=== PATIENT | female | born 1980 | race American Indian/Alaskan Native ===

== ENCOUNTER 2019-04-21 09:24 | Emergency (ER) | payer SELFPAY ==
[2019-04-21] MEDS ORDERED: ATROVENT IH ONE (10:07)
[2019-04-21] MEDS ORDERED: PROVENTIL IH ONE (10:07)
[2019-04-21] MEDS ORDERED: DELTASONE PO ONE (10:08)
--- NOTE | 2019-04-21 10:11 | Emergency Department Report ---
ED Chest Pain HPI - General Chief Complaint: Chest Pain Stated Complaint: CHEST PAIN/ASTHMA Time Seen by Provider: 04/21/19 09:59 Source: patient Mode of arrival: Ambulatory Limitations: No Limitations - History of Present Illness Initial Comments: 38-year-old -[place] female presents to the emergency department with complaint of a 2 week history of some intermittent wheezing, coughing, shortness of breath and chest pains. She has history of asthma and thinks it could be related to that. She also says that she is currently staying in an apartment that appears to have some black mold. She is currently on parole/probation after getting out of senior care and therefore is unable to move from this current living situation. She is a tobacco smoker. She does not have any inhaler or nebulizer treatments to try. No primary care physician. No recent travel. She denies any fever, lower extremity swelling. - Related Data Previous Rx's Medication Instructions Recorded Last Taken Type ALBUTEROL Inhaler (OR & NICU) 2 puff IH QID PRN #1 inhalation 04/21/19 Unknown Rx [ProAir HFA Inhaler] predniSONE [Deltasone] 20 mg PO BID #8 tab 04/21/19 Unknown Rx Allergies Allergy/AdvReac Type Severity Reaction Status Date / Time Penicillins Allergy Unknown Verified 04/21/19 09:29 Heart Score - HEART Score History: Slightly suspicious EKG: Normal Age: < 45 Risk factors: 1-2 risk factors Troponin: < normal limit HEART Score: 1 - Critical Actions Critical Actions: 0-3 pts:0.9-1.7%risk of adverse cardiac event.Candidate for discharge ED Review of Systems ROS: Stated complaint: CHEST PAIN/ASTHMA Other details as noted in HPI Comment: All other systems reviewed and negative Constitutional: denies: chills, fever Eyes: denies: eye pain, vision change ENT: denies: ear pain, throat pain Respiratory: cough, shortness of breath, wheezing Cardiovascular: chest pain. denies: edema Gastrointestinal: denies: abdominal pain, vomiting Genitourinary: denies: dysuria, discharge Musculoskeletal: denies: back pain, arthralgia Skin: denies: rash, lesions Neurological: denies: headache, weakness ED Past Medical Hx - Past Medical History Previous Medical History?: Yes Hx Asthma: Yes - Surgical History Past Surgical History?: No - Social History Smoking Status: Current Every Day Smoker Substance Use Type: None - Medications Home Medications: Home Medications Medication Instructions Recorded Confirmed Last Taken Type ALBUTEROL Inhaler (OR & NICU) 2 puff IH QID PRN #1 inhalation 04/21/19 Unknown Rx [ProAir HFA Inhaler] predniSONE [Deltasone] 20 mg PO BID #8 tab 04/21/19 Unknown Rx ED Physical Exam - General Limitations: No Limitations - Other Other exam information: GENERAL: The patient is well-developed well-nourished. HENT: Normocephalic. Atraumatic. Patient has moist mucous membranes. EYES: Extraocular motions are intact. NECK: Supple. Trachea is midline. CHEST/LUNGS: Mild expiratory wheezing. No tachypnea but no excessive muscle use. No cough heard during examination. There is no respiratory distress noted. HEART/CARDIOVASCULAR: Regular. There is no tachycardia. There is no murmur. ABDOMEN: Abdomen is soft, nontender. Patient has normal bowel sounds. There is no abdominal distention. SKIN: Skin is warm and dry. NEURO: The patient is awake, alert, and oriented. The patient is cooperative. The patient has no focal neurologic deficits. Normal speech. MUSCULOSKELETAL: There is no tenderness or deformity. There is no evidence of acute injury. ED Course Vital Signs 04/21/19 04/21/19 09:43 12:10 Temperature 98.1 F Pulse Rate 62 70 Respiratory 16 18 Rate Blood Pressure 131/66 Blood Pressure 164/64 [Left] O2 Sat by Pulse 99 99 Oximetry LEONOR score - Leonor Score Age > 65: (0) No Aspirin use within the Past 7 Days: (0) No 3 or more CAD Risk Factors: (0) No 2 or more Angina events in past 24 hrs: (1) Yes Known CAD with more than 50% Stenosis: (0) No Elevated Cardiac Markers: (0) No ST Deviation Greater than 0.5mm: (0) No LEONOR Score: 1 ED Medical Decision Making - Lab Data Result diagrams: 04/21/19 10:12 04/21/19 10:12 - EKG Data -: EKG Interpreted by Nd EKG shows normal: sinus rhythm, axis, intervals, QRS complexes, ST-T waves Rate: normal - EKG Data When compared to previous EKG there are: previous EKG unavailable Interpretation: normal EKG - Radiology Data Radiology results: image reviewed interpreted by me: Chest x-ray does not show any acute process. There are no pleural effusions, obvious pneumonia and there is no pneumothorax. - Medical Decision Making Patient presents to the emergency department with a few weeks of some wheezing, coughing, shortness of breath and occasional chest tightness. EKG did not show any signs of ST elevation TX, ischemia or dysrhythmia. Chest x-ray did not show any pleural effusions, pneumonia, pneumothorax, focal consolidation, or any other acute process. Labs have been unremarkable including a negative d-dimer. She was given a dose of steroids and a breathing treatment and upon reevaluation she is feeling greatly improved. She is low on the heart score criteria and LEONOR score. She is low on the Wells score criteria negative for the pulmonary embolism rule out criteria. It is possible that she has some black mold exposure per her history. She is instructed to have her living quarters tested and if positive she will need to find other living arrangements. She has been given referrals for primary care. She has been given a prescription for an albuterol inhaler and steroids. She will return to the ER with any worsening of her symptoms or any acute distress. - Differential Diagnosis asthma, pneumonia, TX, bronchitis Critical Care Time: No Critical care attestation.: If time is entered above; I have spent that time in minutes in the direct care of this critically ill patient, excluding procedure time. ED Disposition Clinical Impression: Bronchospasm, Tobacco use Asthma exacerbation Qualifiers: Asthma severity: unspecified severity Asthma persistence: unspecified Qualified Code(s): J45.901 - Unspecified asthma with (acute) exacerbation Disposition: DC-01 TO HOME OR SELFCARE Is pt being admited?: No Condition: Stable Instructions: Asthma (ED), How to Stop Smoking (ED) Additional Instructions: Please follow-up with a primary care physician in the next few days and I am giving you some referrals for local primary care physicians and clinics. Please make sure you contact the appropriate people regarding having your residence tested for the mold exposure. If positive for mold, please try and find another living situation to avoid any further exposure. Return to the emergency Department with any worsening of your symptoms or any acute distress. Prescriptions: predniSONE [Deltasone] 20 mg PO BID #8 tab ALBUTEROL Inhaler (OR & NICU) [ProAir HFA Inhaler] 2 puff IH QID PRN #1 inhalation PRN Reason: Shortness Of Breath Referrals: [facility] [Outside] - 3-5 Days [facility] [Outside] - 3-5 Days [facility] [Outside] - 3-5 Days Time of Disposition: 12:03
[2019-04-21 10:33] LABS: Basophils # (Auto) 0.1 K/mm3 (0.0-0.1); Basophils % (Auto) 1.2 % (0.0-1.8); Eosinophils # (Auto) 0.4 K/mm3 (0.0-0.4); Eosinophils % (Auto) 3.5 % (0.0-4.3); Hematocrit 40.6 % (30.3-42.9); Hemoglobin 14.3 gm/dl (10.1-14.3); Lymphocytes # (Auto) 4.4 K/mm3 (1.2-5.4); Lymphocytes % (Auto) 37.9 % (13.4-35.0); Mean Corpuscular HGB Conc 35 % (30-34); Mean Corpuscular Volume 80 fl (79-97); Monocytes # (Auto) 0.4 K/mm3 (0.0-0.8); Monocytes % (Auto) 3.7 % (0.0-7.3); Platelet Count 323 K/mm3 (140-440); Red Blood Count 5.06 M/mm3 (3.65-5.03)
--- NOTE | 2019-04-21 10:45 | XRay Report ---
CHEST 2 VIEWS INDICATION / CLINICAL INFORMATION: SOB. Chest pain. COMPARISON: None available. FINDINGS: SUPPORT DEVICES: None. HEART / MEDIASTINUM: No significant abnormality. LUNGS / PLEURA: No significant pulmonary or pleural abnormality. No pneumothorax. ADDITIONAL FINDINGS: No significant additional findings. IMPRESSION: 1. No acute findings. Signer Name: Stephany Martin MD Signed: 04/21/2019 10:40 AM Workstation Name: [id number]
[2019-04-21 10:46] LABS: BUN/Creatinine Ratio 11; Blood Urea Nitrogen 8 mg/dL (7-17); Calcium 9.7 mg/dL (8.4-10.2); Hemolysis Index 4
[2019-04-21 12:11] VITALS: BP 164/64
== END 2019-04-21 12:10 | disposition home or self-care (01) ==
LOC: ED 09:24
DX: J45.901 Unspecified asthma with (acute) exacerbation (principal); F17.200 Nicotine dependence, unspecified, uncomplicated; Z79.899 Other long term (current) drug therapy; Z88.0 Allergy status to penicillin
CPT/HCPCS: 36415; 71046; 80048; 84484; 85025; 93005; 93010; 94640; 99284; J7512

== ENCOUNTER 2020-06-29 14:16 | Outpatient (CLI) | payer MEDICAID ==
[2020-06-29 15:49] LABS: Hematocrit 30.3 % (30.3-42.9); Hemoglobin 10.7 gm/dl (10.1-14.3); Mean Corpuscular HGB Conc 35 % (30-34); Mean Corpuscular Volume 73 fl (79-97); Platelet Count 417 K/mm3 (140-440); Red Blood Count 4.17 M/mm3 (3.65-5.03); Red Cell Distribution Width 18.5 % (13.2-15.2)
[2020-06-29 15:55] LABS: Bacteria,Urine 2+ /HPF (Negative); Bilirubin,Urine NEG (Negative); Blood,Urine NEG (Negative); Color,Urine Yellow (Yellow); Mucus,Urine 2+ /HPF; Urobilinogen,Urine < 2.0 mg/dL (<2.0)
[2020-06-29 16:05] LABS: Alanine Aminotransferase 6 units/L (7-56); Uric Acid 5.2 mg/dL (3.5-7.6)
[2020-06-29 16:28] VITALS: BP 113/63
--- NOTE | 2020-06-29 18:22 | Ultrasound Report ---
ULTRASOUND OBSTETRIC LIMITED ULTRASOUND BIOPHYSICAL PROFILE INDICATION / CLINICAL INFORMATION: PIH. COMPARISON: None available. FINDINGS: BREATHING MOVEMENT = 2 GROSS BODY MOVEMENT = 2 TONE = 2 QUALITATIVE AMNIOTIC FLUID VOLUME = 2 TOTAL BIOPHYSICAL SCORE = 8/8 HEART RATE (beats per minute): 151 AMNIOTIC FLUID INDEX (cm) = 9.2 (normal = 7-24 cm) PRESENTATION: Cephalic. ADDITIONAL FINDINGS: None. IMPRESSION: 1. Biophysical Score = 8/8 Signer Name: Mike Olson MD Signed: 06/29/2020 6:18 PM Workstation Name: [email or web address]
== END 2020-06-29 18:02 | disposition home or self-care (01) ==
LOC: TRG 14:16 → APU 14:17 → TRG 18:02
PROVIDERS: ATTEND Obstetrics & Gynecology
DX: O47.1 False labor at or after 37 completed weeks of gestation (principal); Z3A.38 38 weeks gestation of pregnancy
CPT/HCPCS: 36415; 59025; 76815; 76819; 81001; 82565; 83615; 84450; 84460; 84550; 85027

== ENCOUNTER 2020-07-03 20:24 | Inpatient (IN) | payer MEDICAID ==
[2020-07-03] MEDS ORDERED: LIDOCAINE (2%) 20 MG/1 ML VIAL 20 ML MDV INFILTRATI ONE (23:33)
[2020-07-03] MEDS ORDERED: TERBUTALINE 1 MG/1 ML INJ SUB-Q PRN (23:33)
[2020-07-03] MEDS ORDERED: MINERAL OIL 30 ML ORAL LIQD PO PRN (23:33)
[2020-07-03] MEDS ORDERED: ePHEDrine SULFATE 50 MG/1 ML INJ IV PRN (23:33)
[2020-07-03] MEDS ORDERED: OXYTOCIN DRIP 30 UNITS/500 ML BAG IV SCH (23:45)
--- NOTE | 2020-07-03 23:55 | History and Physical Report ---
History of Present Illness Date of examination: 07/03/20 Date of admission: 07/03/20 20:24 Chief complaint: Here for scheduled IOL. History of present illness: 39 year old female presents to L&D for scheduled IOL due to obesity (recommended by [facility]). Patient received care at [facility] OB-CERTIFIED RECREATIONAL THERAPIST and records are available. Patient also saw [facility] during the . LMP 10/04/2019. EDC 07/10/2020. EDC confirmed by 7.6 week US. significant for the following: asthma, enlarged thyroid, genital herpes (on Valtrex suppression and denies lesions or prodromal symptoms), marijuana and tobacco use, obesity. labs are as follows: A+, antibody screen negative, rubella immune, hepatitis B surface antigen negative, HIV negative, RPR nonreactive, varicella immune, gonorrhea negative, chlamydia negative, trichomonas negative, GBS ne gative, 1 hour sugar test 76, repeat 1 hour sugar test 110, hemoglobin electrophoresis AC. Past History Past Medical History: other (obesity) Past Surgical History: other (EAB times 3) CERTIFIED RECREATIONAL THERAPIST History: herpes (denies lesions or prodromal symptoms) Family/Genetic History: diabetes, hypertension, cancer Social history: smoking, full code. denies: alcohol abuse, prescription drug abuse, IV drug use - Obstetrical History Expected Date of Delivery: 07/10/20 Actual Gestation: 39 Week(s) 1 Day(s) : 4 Para: 0 Hx # Term Pregnancies: 0 Number of Pregnancies: 0 Spontaneous Abortions: 0 Induced : 3 Number of Living Children: 0 Medications and Allergies Allergies Allergy/AdvReac Type Severity Reaction Status Date / Time Penicillins Allergy Severe Anaphylaxis Verified 06/29/20 14:28 Home Medications Medication Instructions Recorded Confirmed Last Taken Type Albuterol Mdi (or & Nicu Only) 2 puff IH QID PRN #1 inhalation 04/21/19 Unknown Rx [ProAir HFA Inhaler] predniSONE [Deltasone] 20 mg PO BID #8 tab 04/21/19 Unknown Rx Active Meds: Active Medications Ephedrine Sulfate (Ephedrine Sulfate) 10 mg IV Q2M PRN PRN Reason: Hypotension Fentanyl (Sublimaze) 100 mcg IV Q2H PRN PRN Reason: Pain,Severe (7-10) LABOR PAIN Oxytocin/Sodium Chloride (Pitocin/Ns 30 Unit/500ml) 30 units in 500 mls @ 2 mls/hr IV TITR MARIOLA; Protocol Lactated Ringer's (Lactated Ringers) 1,000 mls @ 125 mls/hr IV DIRECT MARIOLA Oxytocin/Sodium Chloride (Pitocin/Ns 30 Unit/500ml) 30 units in 500 mls @ 40 mls/hr IV TITR MARIOLA; Protocol Lidocaine (Xylocaine 2%) 20 ml INFILTRATI ONCE ONE Stop: 07/03/20 23:34 Mineral Oil (Mineral Oil) 30 ml PO QHS PRN PRN Reason: Constipation Terbutaline Sulfate (Brethine) 0.25 mg SUB-Q ONCE PRN PRN Reason: Hyperstimulation/Hypertonicity Valacyclovir HCl (Valtrex) 500 mg PO BID MARIOLA Review of Systems All systems: negative (occasional contraction) - Vital Signs Vital signs: Vital Signs Temp Pulse Resp BP 98.2 F 82 16 124/62 07/03/20 21:45 07/03/20 21:45 07/03/20 21:45 07/03/20 21:45 Temp Pulse Resp BP Pulse Ox 98.2 F 90 16 142/68 07/03/20 21:45 07/03/20 23:32 07/03/20 21:45 07/03/20 23:32 - Physical Exam Abdomen: Positive: normal appearance, soft. Negative: distention, tenderness, guarding, rigidity Genitourinary (Female): Positive: normal external genitalia, normal perenium. Negative: perineal/vulvar lesions Vagina: Positive: normal moisture Uterus: Positive: enlarged. Negative: tender Anus/Rectum: Positive: normal perianal skin Extremities: Positive: normal. Negative: tenderness, edema - Obstetrical FHR: category 1 Uterine Contraction Monitor Mode: External Cervical Dilatation: 0 Cervical Effacement Percentage: 20 station: -2 Uterine Contraction Pattern: Irregular Uterine Contraction Intensity: Mild Results All other labs normal. Assessment and Plan A: at 39 weeks gestation. Obesity. GBS negative. Herpes positive on Valtrex suppression. P: Admit. Pitocin cervical ripening and IOL. Continuous EFM. Discussed with patient risks and benefits of Pitocin cervical ripening and IOL. Patient consented to cervical ripening and IOL. Continue Valtrex suppression of HSV.
--- NOTE | 2020-07-04 00:49 | Ultrasound Report ---
US OB limited INDICATION: presentation. TECHNIQUE: Limited OB ultrasound COMPARISON: None available. FINDINGS: presentation is cephalic. heart rate measures 140 bpm. Signer Name: Mike Olson MD Signed: 07/04/2020 12:44 AM Workstation Name: [id number]
[2020-07-04 00:53] LABS: Hematocrit 31.8 % (30.3-42.9); Hemoglobin 10.9 gm/dl (10.1-14.3); Mean Corpuscular HGB Conc 34 % (30-34); Mean Corpuscular Volume 73 fl (79-97); Platelet Count 454 K/mm3 (140-440); Red Blood Count 4.37 M/mm3 (3.65-5.03); Red Cell Distribution Width 18.8 % (13.2-15.2)
[2020-07-04] MEDS: OXYTOCIN DRIP 30 UNITS/500 ML BAG IV SCH (06:20)
[2020-07-04] MEDS: LACTATED RINGERS 1,000 ML IV SCH ×3 (06:21→21:40)
[2020-07-04] MEDS: valACYclovir 500 MG TAB PO SCH ×3 (10:46→22:03)
--- NOTE | 2020-07-04 10:49 | Progress Note ---
Assessment and Plan A: IUP @ 39 2/7 Weeks Category I Tracing Maternal Obesity GBS Negative P: D/C Pitocin Cytotec 25mcg per vagina Subjective - Subjective Date of service: 07/04/20 Objective - Vital Signs Vital Signs: Vital Signs - 12hr 07/03/20 07/04/20 07/04/20 23:32 07:11 08:09 Temperature 98.4 F Pulse Rate 90 73 Respiratory 19 Rate Blood Pressure 142/68 103/51 07/04/20 10:14 Temperature Pulse Rate 76 Respiratory Rate Blood Pressure 114/59 - Exam Breasts: normal Cardiovascular: Regular rate Lungs: Clear to auscultation, Normal air movement Abdomen: Present: normal appearance, normal bowel sounds Uterus: Present: normal, firm, fundal height above umbilicus FHR: category 1 Uterine Contraction Monitor Mode: External Cervical Dilatation: 0 Cervical Effacement Percentage: 0 station: -3 Uterine Contraction Pattern: Absent Uterine Tone Measurement Phase: Resting - Labs Labs: Abnormal Labs 07/03/20 23:57 WBC 16.9 H MCV 73 L MCH 25 L RDW 18.8 H Plt Count 454 H Laboratory Results - last 24 hr 07/03/20 07/03/20 23:57 23:57 WBC 16.9 H RBC 4.37 Hgb 10.9 Hct 31.8 MCV 73 L MCH 25 L MCHC 34 RDW 18.8 H Plt Count 454 H Blood Type A POSITIVE Antibody Screen Negative
[2020-07-04] MEDS ORDERED: miSOPROStol 25 MCG TAB VG PRN (11:00)
[2020-07-04] MEDS ORDERED: DINOPROSTONE 10 MG VAG SUPP VG ONE (16:00)
--- NOTE | 2020-07-04 17:43 | Progress Note ---
Assessment and Plan A: IUP @ 39 2/7 Weeks Category I Tracing Maternal Obesity GBS Negative P: Cervidil Induction Subjective - Subjective Date of service: 07/04/20 Objective - Vital Signs Vital Signs: Vital Signs - 12hr 07/04/20 07/04/20 07/04/20 07:11 08:09 10:14 Temperature 98.4 F Pulse Rate 73 76 Respiratory 19 Rate Blood Pressure 103/51 114/59 07/04/20 07/04/20 07/04/20 11:50 15:24 15:25 Temperature 98.5 F 98.7 F Pulse Rate 86 Respiratory 20 20 Rate Blood Pressure 108/55 - Exam Breasts: normal Cardiovascular: Regular rate Lungs: Clear to auscultation, Normal air movement Abdomen: Present: normal appearance, soft Uterus: Present: normal, firm, fundal height above umbilicus FHR: category 1 Uterine Contraction Monitor Mode: External Cervical Dilatation: 0.5 Cervical Effacement Percentage: 20 station: -4 Uterine Contraction Pattern: Irregular Uterine Tone Measurement Phase: Resting Uterine Contraction Intensity: Mild Extremities: normal - Labs Labs: Abnormal Labs 07/03/20 23:57 WBC 16.9 H MCV 73 L MCH 25 L RDW 18.8 H Plt Count 454 H Laboratory Results - last 24 hr 07/03/20 07/03/20 23:57 23:57 WBC 16.9 H RBC 4.37 Hgb 10.9 Hct 31.8 MCV 73 L MCH 25 L MCHC 34 RDW 18.8 H Plt Count 454 H Blood Type A POSITIVE Antibody Screen Negative
[2020-07-04] MEDS: fentaNYL 100 MCG/2 ML INJ IV PRN (23:19)
[2020-07-05] MEDS: LACTATED RINGERS 1,000 ML IV SCH ×3 (06:35→19:55)
[2020-07-05 09:20] LABS: Amphetamine Screen,Urine Negative; Benzodiazepines Screen,Urine Negative; Cocaine Screen,Urine Negative; Methadone Screen,Urine Negative; Opiate Screen,Urine Negative
[2020-07-05 09:29] LABS: Bacteria,Urine 4+ /HPF (Negative); Bilirubin,Urine NEG (Negative); Blood,Urine NEG (Negative); Color,Urine Yellow (Yellow); Hyaline Casts,Urine 1 /LPF; Mucus,Urine FEW /HPF; Protein,Urine <15 mg/dL mg/dL (Negative); Urobilinogen,Urine < 2.0 mg/dL (<2.0)
[2020-07-05 10:48] LABS: Cannabinoid Screen,Urine PRESUMPTIVE POSITIVE
--- NOTE | 2020-07-05 10:51 | Progress Note ---
Assessment and Plan - Patient Problems (1) Encounter for induction of labor Current Visit: Yes Status: Acute Plan to address problem: Cytotec 50mcg po q 4 hrs as tolerated Pain meds as desired per orders Anticipate (2) Morbid obesity with BMI of 45.0-49.9, adult Current Visit: Yes Status: Acute (3) Anemia Current Visit: Yes Status: Acute Qualifiers: Anemia type: iron deficiency Plan to address problem: Asymptomatic Subjective - Subjective Date of service: 07/05/20 Principal diagnosis: IOL Interval history: See admission H & P and OB progress notes Patient reports: movement normal, contractions ("sometimes"), no new complaints, no loss of fluid, no vaginal bleeding Objective - Vital Signs Vital Signs: Vital Signs - 12hr 07/05/20 07/05/20 07/05/20 07:44 07:45 08:54 Temperature 98.0 F Pulse Rate 75 74 Respiratory 18 Rate Blood Pressure 104/58 100/46 O2 Sat by Pulse Oximetry 07/05/20 07/05/20 07/05/20 09:13 09:32 09:37 Temperature Pulse Rate 82 75 79 Respiratory Rate Blood Pressure O2 Sat by Pulse 100 98 100 Oximetry 07/05/20 07/05/20 07/05/20 09:42 09:47 09:52 Temperature Pulse Rate 73 73 86 Respiratory Rate Blood Pressure O2 Sat by Pulse 100 100 100 Oximetry 07/05/20 07/05/20 07/05/20 09:57 10:02 10:07 Temperature Pulse Rate 84 88 72 Respiratory Rate Blood Pressure O2 Sat by Pulse 100 100 100 Oximetry 07/05/20 07/05/20 07/05/20 10:12 10:17 10:22 Temperature Pulse Rate 70 74 71 Respiratory Rate Blood Pressure O2 Sat by Pulse 100 100 100 Oximetry 07/05/20 07/05/20 07/05/20 10:27 10:37 10:42 Temperature Pulse Rate 95 H 69 76 Respiratory Rate Blood Pressure O2 Sat by Pulse 99 100 99 Oximetry - Exam Breasts: deferred Cardiovascular: Regular rate Lungs: Normal air movement Abdomen: Present: other (gravid) Uterus: Present: other (enlarged) FHR: category 1 Uterine Contraction Monitor Mode: External Cervical Dilatation: 0.5 (vertex) Cervical Effacement Percentage: 50 (soft) station: -2 Uterine Contraction Pattern: Irregular Uterine Tone Measurement Phase: Resting Uterine Contraction Intensity: Mild Extremities: normal - Labs Labs: Abnormal Labs 07/03/20 07/05/20 23:57 Unknown WBC 16.9 H MCV 73 L MCH 25 L RDW 18.8 H Plt Count 454 H Urine pH 8.0 H Laboratory Results - last 24 hr 07/05/20 07/05/20 Unknown Unknown Urine Color Yellow Urine Turbidity Clear Urine pH 8.0 H Ur Specific [place] 1.008 Urine Protein <15 mg/dl Urine Glucose (UA) Neg Urine Ketones Neg Urine Blood Neg Urine Nitrite Pos Urine Bilirubin Neg Urine Urobilinogen < 2.0 Ur Leukocyte Esterase Neg Urine WBC (Auto) 1.0 Urine RBC (Auto) 1.0 U Epithel Cells (Auto) 1.0 Urine Bacteria (Auto) 4+ Hyaline Casts 1 Urine Mucus Few Urine Opiates Screen Negative Urine Methadone Screen Negative Ur Barbiturates Screen Negative Ur Phencyclidine Scrn Negative Ur Amphetamines Screen Negative U Benzodiazepines Scrn Negative Urine Cocaine Screen Negative
[2020-07-05] MEDS: valACYclovir 500 MG TAB PO SCH ×2 (11:10→22:45)
[2020-07-05] MEDS: miSOPROStol 25 MCG TAB PO PRN ×3 (11:13→19:25)
[2020-07-06] MEDS ORDERED: PROMETHAZINE 25 MG TAB ONE (00:13)
[2020-07-06] MEDS: fentaNYL 100 MCG/2 ML INJ IV PRN (00:15)
[2020-07-06] MEDS: OXYTOCIN DRIP 30 UNITS/500 ML BAG IV SCH (03:52)
[2020-07-06] MEDS ORDERED: NALOXONE 2 MG/2 ML INJ IV PRN (04:17)
[2020-07-06] MEDS ORDERED: diphenhydrAMINE 50 MG/ML VIAL IV PRN (04:17)
[2020-07-06] MEDS ORDERED: ONDANSETRON 4 MG/2 ML INJ IV PRN (04:17)
[2020-07-06] MEDS ORDERED: NalbUPHINE 10 MG/1 ML INJ IV PRN (04:17)
--- NOTE | 2020-07-06 04:41 | Anesthesia Consultation ---
Anesthesia Consult and Med Hx Date of service: 07/06/20 - Airway Anesthetic Teeth Evaluation: Good ROM Head & Neck: Adequate Mental/Hyoid Distance: Adequate Mallampati Class: Class III Intubation Access Assessment: Possibly Difficult - Pulmonary Exam CTA: Yes - Cardiac Exam Cardiac Exam: RRR - Pre-Operative Health Status ASA Pre-Surgery Classification: ASA2 Proposed Anesthetic Plan: Epidural - Pulmonary Hx Smoking: Yes Hx Asthma: Yes COPD: No Hx Pneumonia: No Hx Sleep Apnea: No - Cardiovascular System Hx Hypertension: No Hx Heart Attack/AMI: No - Central Nervous System Hx Seizures: No Hx Psychiatric Problems: No - Gastrointestinal Hx Gastroesophageal Reflux Disease: No - Endocrine Hx Renal Disease: No Hx End Stage Renal Disease: No Hx Insulin Dependent Diabetes: No Hx Non-Insulin Dependent Diabetes: No Hx Hypothyroidism: No Hx Hyperthyroidism: No - Hematic Hx Anemia: Yes Hx Sickle Cell Disease: No - Other Systems Hx Alcohol Use: No
--- NOTE | 2020-07-06 04:42 | Progress Note ---
Labor Epidural - Labor Epidural Start Time: 04:20 Stop Time: 04:35 Performed by:: CAROLIN PASTRANA Procedure: Patient is requesting a laboring epidural for laboring pain. Patient IDed, H&P reviewed, all questions and concerns were answered, and consent was signed. Timeout was performed at bedside. Patient in sitting position. Sterile prep and drape was performed. 3ml of 1% lidocaine skin wheal at L[3]- L [4]. 18- gauge Touhy epidural needle was advanced to loss of resistance with air technique. Negative CSF negative blood. Epidural catheter advanced to [15] centimeters. [-] Aspiration [-] test dose. Sterile dressing applied. Patient tolerated procedure.
[2020-07-06] MEDS ORDERED: fentaNYL-BUPIV 2 MCG/ML-0.125% 200 MCG/100 ML BAG EPIDURAL SCH (05:00)
--- NOTE | 2020-07-06 09:31 | Progress Note ---
Assessment and Plan A: IUP @ 39 4/7 Weeks Category I Tracing Active Labor Maternal Obesity GBS Negative P: AROM IUPC Placed Continue Pitocin Augmentation Multiple Maternal Position Changes Subjective - Subjective Date of service: 07/06/20 Principal diagnosis: IOL Patient reports: movement normal, other (Resting well under epidural anesthesia), no new complaints, no loss of fluid, no vaginal bleeding Objective - Vital Signs Vital Signs: Vital Signs - 12hr 07/05/20 07/05/20 07/05/20 21:30 21:35 21:40 Temperature Pulse Rate 103 H 82 79 Respiratory Rate Blood Pressure Blood Pressure [Right] O2 Sat by Pulse 100 100 100 Oximetry 07/05/20 07/05/20 07/05/20 21:45 21:50 21:54 Temperature Pulse Rate 67 79 85 Respiratory Rate Blood Pressure 126/64 Blood Pressure [Right] O2 Sat by Pulse 100 100 Oximetry 07/05/20 07/05/20 07/05/20 21:55 22:00 22:05 Temperature Pulse Rate 80 82 77 Respiratory Rate Blood Pressure Blood Pressure [Right] O2 Sat by Pulse 100 100 100 Oximetry 07/05/20 07/05/20 07/05/20 22:10 22:15 22:20 Temperature Pulse Rate 76 82 73 Respiratory Rate Blood Pressure Blood Pressure [Right] O2 Sat by Pulse 100 100 100 Oximetry 07/05/20 07/05/20 07/05/20 22:25 22:30 22:35 Temperature Pulse Rate 77 75 80 Respiratory Rate Blood Pressure Blood Pressure [Right] O2 Sat by Pulse 100 100 100 Oximetry 07/05/20 07/05/20 07/05/20 22:40 22:45 22:50 Temperature Pulse Rate 75 75 79 Respiratory Rate Blood Pressure Blood Pressure [Right] O2 Sat by Pulse 100 99 100 Oximetry 07/05/20 07/05/20 07/05/20 22:55 22:58 23:00 Temperature Pulse Rate 80 81 72 Respiratory Rate Blood Pressure 109/58 Blood Pressure [Right] O2 Sat by Pulse 100 87 100 Oximetry 07/05/20 07/05/20 07/05/20 23:05 23:10 23:20 Temperature Pulse Rate 70 70 93 H Respiratory Rate Blood Pressure Blood Pressure [Right] O2 Sat by Pulse 100 100 94 Oximetry 07/05/20 07/05/20 07/05/20 23:29 23:34 23:39 Temperature Pulse Rate 86 73 83 Respiratory Rate Blood Pressure Blood Pressure [Right] O2 Sat by Pulse 100 100 100 Oximetry 07/05/20 07/05/20 07/05/20 23:44 23:49 23:51 Temperature Pulse Rate 77 75 87 Respiratory Rate Blood Pressure Blood Pressure [Right] O2 Sat by Pulse 100 100 93 Oximetry 07/05/20 07/05/20 07/06/20 23:54 23:59 00:00 Temperature 98.9 F Pulse Rate 77 80 77 Respiratory 16 Rate Blood Pressure 119/55 Blood Pressure 119/55 [Right] O2 Sat by Pulse 100 100 100 Oximetry 07/06/20 07/06/20 07/06/20 00:04 00:09 00:14 Temperature Pulse Rate 87 88 81 Respiratory Rate Blood Pressure Blood Pressure [Right] O2 Sat by Pulse 99 96 100 Oximetry 07/06/20 07/06/20 07/06/20 00:19 00:24 00:29 Temperature Pulse Rate 89 84 82 Respiratory Rate Blood Pressure Blood Pressure [Right] O2 Sat by Pulse 97 97 97 Oximetry 07/06/20 07/06/20 07/06/20 00:34 00:39 00:44 Temperature Pulse Rate 83 83 87 Respiratory Rate Blood Pressure Blood Pressure [Right] O2 Sat by Pulse 99 99 97 Oximetry 07/06/20 07/06/20 07/06/20 00:47 00:49 00:54 Temperature Pulse Rate 83 76 73 Respiratory Rate Blood Pressure Blood Pressure [Right] O2 Sat by Pulse 93 97 100 Oximetry 07/06/20 07/06/20 07/06/20 00:55 00:59 01:01 Temperature Pulse Rate 74 78 82 Respiratory Rate Blood Pressure 114/69 Blood Pressure [Right] O2 Sat by Pulse 97 90 Oximetry 07/06/20 07/06/20 07/06/20 01:04 01:09 01:14 Temperature Pulse Rate 79 82 74 Respiratory Rate Blood Pressure Blood Pressure [Right] O2 Sat by Pulse 100 98 100 Oximetry 07/06/20 07/06/20 07/06/20 01:19 01:24 01:26 Temperature Pulse Rate 84 91 H 88 Respiratory Rate Blood Pressure Blood Pressure [Right] O2 Sat by Pulse 99 97 93 Oximetry 07/06/20 07/06/20 07/06/20 01:29 01:34 01:37 Temperature Pulse Rate 78 74 87 Respiratory Rate Blood Pressure Blood Pressure [Right] O2 Sat by Pulse 97 100 0 L Oximetry 07/06/20 07/06/20 07/06/20 01:39 01:44 01:49 Temperature Pulse Rate 92 H 74 73 Respiratory Rate Blood Pressure Blood Pressure [Right] O2 Sat by Pulse 89 98 100 Oximetry 07/06/20 07/06/20 07/06/20 01:54 01:59 02:04 Temperature Pulse Rate 72 67 71 Respiratory Rate Blood Pressure Blood Pressure [Right] O2 Sat by Pulse 100 97 98 Oximetry 07/06/20 07/06/20 07/06/20 02:09 02:14 02:18 Temperature Pulse Rate 67 65 78 Respiratory Rate Blood Pressure Blood Pressure [Right] O2 Sat by Pulse 99 98 87 Oximetry 07/06/20 07/06/20 07/06/20 02:19 02:24 02:29 Temperature Pulse Rate 67 88 78 Respiratory Rate Blood Pressure Blood Pressure [Right] O2 Sat by Pulse 99 99 100 Oximetry 07/06/20 07/06/20 07/06/20 02:31 02:34 02:38 Temperature Pulse Rate 87 69 68 Respiratory Rate Blood Pressure Blood Pressure [Right] O2 Sat by Pulse 93 98 93 Oximetry 07/06/20 07/06/20 07/06/20 02:39 02:44 02:49 Temperature Pulse Rate 71 65 87 Respiratory Rate Blood Pressure Blood Pressure [Right] O2 Sat by Pulse 98 98 100 Oximetry 07/06/20 07/06/20 07/06/20 02:54 02:56 02:59 Temperature Pulse Rate 67 75 81 Respiratory Rate Blood Pressure Blood Pressure [Right] O2 Sat by Pulse 98 91 98 Oximetry 07/06/20 07/06/20 07/06/20 03:04 03:09 03:10 Temperature Pulse Rate 82 68 80 Respiratory Rate Blood Pressure Blood Pressure [Right] O2 Sat by Pulse 100 99 93 Oximetry 07/06/20 07/06/20 07/06/20 03:14 03:19 03:24 Temperature Pulse Rate 91 H 69 73 Respiratory Rate Blood Pressure Blood Pressure [Right] O2 Sat by Pulse 96 99 100 Oximetry 07/06/20 07/06/20 07/06/20 03:29 03:34 03:45 Temperature Pulse Rate 68 77 98 H Respiratory Rate Blood Pressure Blood Pressure [Right] O2 Sat by Pulse 100 99 99 Oximetry 07/06/20 07/06/20 07/06/20 03:50 03:55 04:00 Temperature Pulse Rate 73 66 68 Respiratory Rate Blood Pressure Blood Pressure [Right] O2 Sat by Pulse 100 100 100 Oximetry 07/06/20 07/06/20 07/06/20 04:05 04:06 04:10 Temperature Pulse Rate 75 82 68 Respiratory Rate Blood Pressure 135/60 Blood Pressure [Right] O2 Sat by Pulse 100 100 Oximetry 07/06/20 07/06/20 07/06/20 04:12 04:15 04:18 Temperature Pulse Rate 88 91 H 59 L Respiratory Rate Blood Pressure Blood Pressure [Right] O2 Sat by Pulse 93 100 87 Oximetry 07/06/20 07/06/20 07/06/20 04:20 04:25 04:30 Temperature 98.8 F Pulse Rate 96 H 71 84 Respiratory 16 Rate Blood Pressure Blood Pressure 92/51 [Right] O2 Sat by Pulse 90 100 99 Oximetry 07/06/20 07/06/20 07/06/20 04:33 04:35 04:37 Temperature Pulse Rate 67 67 76 Respiratory Rate Blood Pressure 126/63 130/62 120/55 Blood Pressure [Right] O2 Sat by Pulse 100 Oximetry 07/06/20 07/06/20 07/06/20 04:38 04:40 04:41 Temperature Pulse Rate 78 65 69 Respiratory Rate Blood Pressure 114/54 Blood Pressure [Right] O2 Sat by Pulse 92 100 Oximetry 07/06/20 07/06/20 07/06/20 04:43 04:45 04:47 Temperature Pulse Rate 68 89 80 Respiratory Rate Blood Pressure 97/54 92/51 99/54 Blood Pressure [Right] O2 Sat by Pulse 99 Oximetry 07/06/20 07/06/20 07/06/20 04:49 04:50 04:54 Temperature Pulse Rate 82 63 61 Respiratory Rate Blood Pressure 89/54 97/52 Blood Pressure [Right] O2 Sat by Pulse 100 Oximetry 07/06/20 07/06/20 07/06/20 04:55 04:59 05:00 Temperature Pulse Rate 60 63 64 Respiratory Rate Blood Pressure 97/53 Blood Pressure [Right] O2 Sat by Pulse 100 100 Oximetry 07/06/20 07/06/20 07/06/20 05:04 05:05 05:10 Temperature Pulse Rate 127 H 92 H 65 Respiratory Rate Blood Pressure 137/83 106/54 Blood Pressure [Right] O2 Sat by Pulse 100 100 Oximetry 07/06/20 07/06/20 07/06/20 05:15 05:20 05:24 Temperature Pulse Rate 61 60 64 Respiratory Rate Blood Pressure 99/57 103/54 98/52 Blood Pressure [Right] O2 Sat by Pulse 100 100 Oximetry 07/06/20 07/06/20 07/06/20 05:25 05:29 05:30 Temperature Pulse Rate 70 65 64 Respiratory Rate Blood Pressure 102/59 Blood Pressure [Right] O2 Sat by Pulse 100 100 Oximetry 07/06/20 07/06/20 07/06/20 05:35 05:40 05:45 Temperature Pulse Rate 64 70 67 Respiratory Rate Blood Pressure 102/56 Blood Pressure [Right] O2 Sat by Pulse 100 100 100 Oximetry 07/06/20 07/06/20 07/06/20 05:50 05:55 06:00 Temperature Pulse Rate 69 73 73 Respiratory Rate Blood Pressure 103/61 102/60 Blood Pressure [Right] O2 Sat by Pulse 100 100 100 Oximetry 07/06/20 07/06/20 07/06/20 06:05 06:10 06:15 Temperature Pulse Rate 71 71 71 Respiratory Rate Blood Pressure 103/60 Blood Pressure [Right] O2 Sat by Pulse 100 100 100 Oximetry 07/06/20 07/06/20 07/06/20 06:20 06:25 06:30 Temperature Pulse Rate 71 73 81 Respiratory Rate Blood Pressure 104/57 104/63 Blood Pressure [Right] O2 Sat by Pulse 100 100 100 Oximetry 07/06/20 07/06/20 07/06/20 06:35 06:40 06:45 Temperature Pulse Rate 61 75 77 Respiratory Rate Blood Pressure 107/65 Blood Pressure [Right] O2 Sat by Pulse 100 100 100 Oximetry 07/06/20 07/06/20 07/06/20 06:50 06:51 06:55 Temperature Pulse Rate 68 72 67 Respiratory Rate Blood Pressure 121/62 Blood Pressure [Right] O2 Sat by Pulse 100 100 Oximetry 07/06/20 07/06/20 07/06/20 07:00 07:01 07:05 Temperature Pulse Rate 64 77 63 Respiratory Rate Blood Pressure 111/69 Blood Pressure [Right] O2 Sat by Pulse 100 100 Oximetry 11/07/06/20 07/06/20 07:10 07:13 07:16 Temperature Pulse Rate 58 L 66 60 Respiratory Rate Blood Pressure 113/63 Blood Pressure [Right] O2 Sat by Pulse 90 0 L 0 L Oximetry 07/06/20 07/06/20 07/06/20 07:18 07:20 07:23 Temperature Pulse Rate 64 69 63 Respiratory Rate Blood Pressure 112/65 Blood Pressure [Right] O2 Sat by Pulse 100 100 Oximetry 07/06/20 07/06/20 07/06/20 07:29 07:30 07:34 Temperature Pulse Rate 63 64 60 Respiratory Rate Blood Pressure 111/66 Blood Pressure [Right] O2 Sat by Pulse 95 100 Oximetry 07/06/20 07/06/20 07/06/20 07:39 07:40 07:44 Temperature Pulse Rate 62 62 64 Respiratory Rate Blood Pressure 108/67 Blood Pressure [Right] O2 Sat by Pulse 100 100 Oximetry 07/06/20 07/06/20 07/06/20 07:49 07:50 07:54 Temperature Pulse Rate 64 55 L 60 Respiratory Rate Blood Pressure 111/62 Blood Pressure [Right] O2 Sat by Pulse 100 100 Oximetry 07/06/20 07/06/20 07/06/20 07:59 08:01 08:04 Temperature Pulse Rate 74 60 58 L Respiratory Rate Blood Pressure 125/60 Blood Pressure [Right] O2 Sat by Pulse 98 100 Oximetry 07/06/20 07/06/20 07/06/20 08:06 08:09 08:10 Temperature Pulse Rate 69 77 67 Respiratory Rate Blood Pressure 116/56 Blood Pressure [Right] O2 Sat by Pulse 89 100 Oximetry 07/06/20 07/06/20 07/06/20 08:13 08:14 08:19 Temperature Pulse Rate 76 76 62 Respiratory Rate Blood Pressure Blood Pressure [Right] O2 Sat by Pulse 90 100 100 Oximetry 07/06/20 07/06/20 07/06/20 08:20 08:24 08:25 Temperature Pulse Rate 76 76 80 Respiratory Rate Blood Pressure 123/60 Blood Pressure [Right] O2 Sat by Pulse 99 88 Oximetry 07/06/20 07/06/20 07/06/20 08:29 08:31 08:34 Temperature Pulse Rate 63 61 60 Respiratory Rate Blood Pressure 132/60 Blood Pressure [Right] O2 Sat by Pulse 100 100 Oximetry 07/06/20 07/06/20 07/06/20 08:39 08:42 08:45 Temperature Pulse Rate 59 L 67 61 Respiratory Rate Blood Pressure 119/74 Blood Pressure [Right] O2 Sat by Pulse 100 100 Oximetry 07/06/20 07/06/20 07/06/20 08:50 08:55 09:00 Temperature Pulse Rate 67 57 L 59 L Respiratory Rate Blood Pressure 119/70 113/68 Blood Pressure [Right] O2 Sat by Pulse 100 100 91 Oximetry 07/06/20 07/06/20 07/06/20 09:05 09:10 09:16 Temperature Pulse Rate 58 L 65 56 L Respiratory Rate Blood Pressure 110/55 Blood Pressure [Right] O2 Sat by Pulse 100 100 100 Oximetry 07/06/20 07/06/20 07/06/20 09:17 09:20 09:21 Temperature Pulse Rate 77 60 61 Respiratory Rate Blood Pressure 111/59 Blood Pressure [Right] O2 Sat by Pulse 89 100 Oximetry 07/06/20 09:23 Temperature Pulse Rate 117 H Respiratory Rate Blood Pressure Blood Pressure [Right] O2 Sat by Pulse 85 Oximetry - Exam Breasts: normal Cardiovascular: Regular rate Lungs: Clear to auscultation, Normal air movement Abdomen: Present: normal appearance, soft, normal bowel sounds Uterus: Present: normal, firm, fundal height above umbilicus FHR: category 1 Uterine Contraction Monitor Mode: Internal Cervical Dilatation: 6 (Small amount of clear fluid upon AROM @ 0919) Cervical Effacement Percentage: 80 station: -1 Uterine Contraction Frequency (min): 3 Uterine Contraction Duration: 50 Uterine Contraction Pattern: Regular Uterine Tone Measurement Phase: Resting Uterine Contraction Intensity: Moderate Extremities: normal - Labs Labs: Abnormal Labs 07/03/20 07/05/20 23:57 Unknown WBC 16.9 H MCV 73 L MCH 25 L RDW 18.8 H Plt Count 454 H Urine pH 8.0 H Laboratory Results - last 24 hr 07/05/20 07/05/20 Unknown Unknown Urine Color Yellow Urine Turbidity Clear Urine pH 8.0 H Ur Specific [place] 1.008 Urine Protein <15 mg/dl Urine Glucose (UA) Neg Urine Ketones Neg Urine Blood Neg Urine Nitrite Pos Urine Bilirubin Neg Urine Urobilinogen < 2.0 Ur Leukocyte Esterase Neg Urine WBC (Auto) 1.0 Urine RBC (Auto) 1.0 U Epithel Cells (Auto) 1.0 Urine Bacteria (Auto) 4+ Hyaline Casts 1 Urine Mucus Few U Marijuana (THC) Screen Presumptive positive Drugs of Abuse Note Disclamer
[2020-07-06] MEDS ORDERED: WITCH HAZEL/ GLYCERIN PAD TP PRN (12:08)
[2020-07-06] MEDS ORDERED: LANOLIN/ZINC/DIMETHICONE (LANSINOH) 7 GM TP PRN (12:08)
--- NOTE | 2020-07-06 12:16 | Procedure Note ---
OB Delivery Note - Delivery Date of Delivery: 07/06/20 (1150) Surgeon: MARIO TURNER Estimated blood loss: 300cc - Vaginal Delivery presentation: vertex Delivery position: OA Intrapartum events: none Delivery induction: cervidil Delivery augmentation: rupture of membranes, pitocin Delivery monitor: external FHT, internal uterine Route of delivery: Delivery placenta: spontaneous Delivery cord: nuchal cord, 3 umbilical vessels Delivery laceration: none Anesthesia: epidural Delivery comments: of a live 6'3 female infant over a intact perineum under epidural anesthesia with Apgars of 8 and 9 at 1150 on 07/06/2020. Nuchal cord x 1 easily manually reduced on the perineum prior to delivery of the anterior shoulder. Infant directly to maternal abd/chest, skin to skin contact. Spontaneous delivery of placenta complete and intact with [place] side presenting at 1154. Fundus is firm and midline located 6 below the U. Lochia is scant. Delayed cord clamping and cutting; Cord cut by the patient. - A at 1 minute: 8 at 5 minutes: 9 Infant Gender: Female (6'3)
[2020-07-06] MEDS: LACTATED RINGERS 1,000 ML IV SCH (14:33)
[2020-07-06] MEDS: HYDROcodone/ACETAMINOPHEN 5-325 MG TAB PO PRN (19:58)
[2020-07-07] MEDS: IBUPROFEN 600 MG TAB PO SCH ×3 (00:23→19:37)
[2020-07-07 01:54] LABS: Hemoglobin 10.1 gm/dl (10.1-14.3)
[2020-07-07] MEDS: HYDROcodone/ACETAMINOPHEN 5-325 MG TAB PO PRN (10:09)
--- NOTE | 2020-07-07 10:46 | Post Anesthesia Evaluation ---
- Post Anesthesia Evaluation Patient Participated: Yes Airway Patent: Yes Stable Respiratory Function: Yes Nausea/Vomiting: No Temp > 96.8F: Yes Pain Manageable: Yes Adequeate Hydration: Yes Anesthesia Complications: No Block Receding Appropriately: Yes Patient on Ventilator: No
--- NOTE | 2020-07-07 22:46 | Progress Note ---
Assessment and Plan A: S/P C/o left leg soreness p: Continue monitoring D/C home tomm if stable Subjective - Subjective Date of service: 07/07/20 Principal diagnosis: IOL Patient reports: appetite normal, voiding normally, pain well controlled, ambulating normally [place]: doing well, nursing well Objective - Vital Signs Latest vital signs: Vital Signs Temp Pulse Resp BP Pulse Ox 07/07/20 16:24 97.9 F 61 20 115/77 98 07/07/20 11:56 97.8 F 69 20 112/61 95 07/07/20 07:50 97.8 F 73 16 126/67 97 07/07/20 02:06 98.1 F 71 20 111/62 97 Intake and Output 07/07/20 07/07/20 07/07/20 06:59 14:59 22:59 Intake Total 120 360 400 Output Total 300 Balance -180 360 400 Intake: Oral 120 360 400 Output: Urine 300 Void 300 Other: Total, Intake Amount 120 120 200 Total, Output Amount 300 # Voids Indwelling Catheter 1 Void 1 - Exam Breasts: Present: normal Cardiovascular: Present: Regular rate Lungs: Present: Clear to auscultation Abdomen: Present: normal appearance, soft, normal bowel sounds Vulva: both: normal Uterus: Present: normal, firm, fundal height below umbilicus Extremities: Present: normal - Labs Labs: Abnormal lab results 07/07/20 Range/Units 00:39 Hct 30.0 L (30.3-42.9) %
--- NOTE | 2020-07-07 23:07 | Discharge Summary ---
Providers - Providers Date of Admission: 07/03/20 20:24 Date of discharge: 07/08/20 Attending physician: LUKAS GUAJARDO MD Primary care physician: LUKAS GUAJARDO MD Hospitalization Reason for admission: induction of labor Delivery: Episiotomy: none Laceration: none Other procedures: none complications: none Discharge diagnosis: IUP at term delivered [place] baby: female Hospital course: Pt was admitted for an IOL r/t PIH. She had an uncomplicated and was d/cd in stable condition. See H&P, delivery summary, and pp notes. Condition at discharge: Stable Disposition: DC-01 TO HOME OR SELFCARE Plan - Discharge Medications Prescriptions: Ibuprofen [Ibu-200] 600 mg PO Q6HR #90 tablet - Provider Discharge Summary Additional instructions: [] Smoking cessation referral if applicable(refer to patient education folder for contact #) [] Refer to [facility] Booklet Call your doctor immediately for: * Fever > 100.5 * Heavy vaginal bleeding ( >1 pad per hour) * Severe persistent headache * Shortness of breath * Reddened, hot, painful area to leg or breast * Drainage or odor from incision. * Keep incision clean and dry at all times and follow doctor's instructions regarding bathing/showering - Follow up plan Follow up: LUKAS GUAJARDO MD [Primary Care Provider] - 6 Weeks
[2020-07-08] MEDS: IBUPROFEN 600 MG TAB PO SCH ×3 (02:26→15:00)
[2020-07-08 17:29] VITALS: BP 125/68
== END 2020-07-08 16:45 | disposition home or self-care (01) | DRG 774 ==
LOC: LD 20:24 → OB 07-06 15:53
PROVIDERS: ADMIT Obstetrics & Gynecology; ATTEND Obstetrics & Gynecology
PROC: 3E0P7VZ Introduction of Hormone into Female Reproductive, Via Natural or Artificial Opening (ICD-10-PCS; principal; 2020-07-06)
PROC: 10E0XZZ Delivery of Products of Conception, External Approach (ICD-10-PCS; 2020-07-06)
PROC: 10907ZC Drainage of Amniotic Fluid, Therapeutic from Products of Conception, Via Natural or Artificial Opening (ICD-10-PCS; 2020-07-06)
PROC: 10H07YZ Insertion of Other Device into Products of Conception, Via Natural or Artificial Opening (ICD-10-PCS; 2020-07-06)
DX: O69.81X0 Labor and delivery complicated by cord around neck, without compression, not applicable or unspecified (principal); O98.52 Other viral diseases complicating childbirth; Z37.0 Single live birth; O99.02 Anemia complicating childbirth; Z3A.39 39 weeks gestation of pregnancy; B00.9 Herpesviral infection, unspecified; J45.909 Unspecified asthma, uncomplicated; D50.9 Iron deficiency anemia, unspecified; O99.52 Diseases of the respiratory system complicating childbirth; O99.214 Obesity complicating childbirth; O75.89 Other specified complications of labor and delivery; E66.01 Morbid (severe) obesity due to excess calories; Z83.3 Family history of diabetes mellitus; Z82.49 Family history of ischemic heart disease and other diseases of the circulatory system; Z88.0 Allergy status to penicillin
CPT/HCPCS: 36415; 59025; 59200; 76815; 80307; 81001; 85014; 85018; 85027; 86850; 86900; 86901; 87086; G0378; J2590; J3010; J7120; U0003

== ENCOUNTER 2021-12-14 09:40 | Day surgery (SDC) | payer BC, MEDICAID ==
[2021-12-12 12:36] LABS: Hematocrit 40.2 % (30.3-42.9); Hemoglobin 13.4 gm/dl (10.1-14.3); Mean Corpuscular HGB Conc 33 % (30-34); Mean Corpuscular Volume 78 fl (79-97); Platelet Count 310 K/mm3 (140-440); Red Blood Count 5.19 M/mm3 (3.65-5.03); Red Cell Distribution Width 15.9 % (13.2-15.2)
[~2021-12-14 09:40] MED LIST: ACETAMINOPHEN 500 MG TAB PO SCH; CELECOXIB 200 MG CAP PO SCH; GABAPENTIN 300 MG CAP PO SCH; LACTATED RINGERS 1,000 ML IV SCH; MIDAZOLAM 2 MG/2 ML INJ IV SCH; SCOPOLAMINE TRANSDERMAL PATCH 72 HR TD SCH; SODIUM CHLORIDE 0.9% IRR 1,500 ML BOTTLE IR ONE
--- NOTE | 2021-12-14 10:09 | Operative Report ---
Operative Report Operative Report: Preoperative diagnosis:Multiparity desiring permanent surgical sterilization Postoperative diagnosis:Same Procedure:Operative laparoscopic bilateral tubal ligation via fulguration Surgeon:Dr. Bel Graham Anesthesia:GETA Complication:none EBL:Less than 100 ml IV fluids:1 Liter crystalloid Urine output:Adequate, clear Drain:None Findings:No abdominal pathology uterus tubes and ovaries normal Procedure: Patient was consented in preop holding about risks benefits possible complications as well as alternatives to the procedure. After informed consent was obtained patient was taken to the operating room. She received excellent general endotracheal anesthesia and with no complication. She was then placed in the dorsal lithotomy position, prepped and draped in a sterile fashion. A timeout was verified, a red rubber catheter was placed atraumatically. A speculum was placed in the vaginal vault, the parametria was noted to be pink with no masses lesions or nodularity. The cervix was identified, grasped with a single-tooth tenaculum, and an acorn uterine manipulator was placed atraumati quinn. Attention then turned to the abdomen. An umbilical incision was made with a scalpel, taken down to the fascia which was incised sharply atraumatically. Abdominal entry was achieved with the Watt trocar under direct visualization. The abdomen was then appropriately insufflated to allow for safe passage of a trocar. ONe left lateral 5 mm port was placed in the usual fashion under direct visualization. The patient was placed in steep Trendelenburg. Using an LigaSure the fallopian tubes were fulgurated bilaterally. Excellent hemostasis. At the completion of the procedure all tro chars were removed atraumatically under direct visualization. The fascia was closed with 0 Vicryl, the skin closed with Monocryl. Pressure dressings were applied at all incision sites. The uterine manipulator and speculum were removed from the uterus and the cervix respectively. The patient was extubated and taken to the recovery area in stable condition. Her family was notified of her stable condition immediately following the completion of the procedure. There were no complications. EBL less than 50 mL. All sponge needle and instrument counts were correct x2. Letty Graham MD
[2021-12-14] MEDS ORDERED: oxyCODONE /ACETAMINOPHEN 5-325MG TAB PO PRN (10:28)
[2021-12-14] MEDS ORDERED: ONDANSETRON 4 MG/2 ML INJ IV PRN (10:28)
[2021-12-14] MEDS ORDERED: HYDROmorphone 1 MG/1 ML INJ IV PRN (10:28)
--- NOTE | 2021-12-14 10:28 | Anesthesia Day of Surgery ---
Anesthesia Day of Surgery - Day of Surgery Patient Examined: Yes Patient H&P Reviewed: Yes Patient is NPO: Yes
--- NOTE | 2021-12-14 10:28 | Anesthesia Consultation ---
Anesthesia Consult and Med Hx Date of service: 12/14/21 - Airway Anesthetic Teeth Evaluation: Good, Crowns ROM Head & Neck: Adequate Mental/Hyoid Distance: Adequate Mallampati Class: Class I Intubation Access Assessment: Good - Pre-Operative Health Status ASA Pre-Surgery Classification: ASA2 Proposed Anesthetic Plan: General - Pulmonary Hx Smoking: Yes (1/3PPD, did not smoke today) Hx Asthma: Yes (last INH use 1 wk ago (triggered by pollen)) Hx Respiratory Symptoms: No - Cardiovascular System Hx Hypertension: No - Central Nervous System Hx Seizures: No (seizure x1 after PCN several years ago; no seizure d/o or meds) CVA: No - Endocrine Hx Renal Disease: No Hx Liver Disease: No Hx Insulin Dependent Diabetes: No Hx Non-Insulin Dependent Diabetes: No Hx Thyroid Disease: No - Other Systems Hx Obesity: Yes - Additional Comments Anesthesia Medical History Comments: No hx anesthetic complications.
[2021-12-14] MEDS ORDERED: CLINDAMYCIN 600 MG/50 mL 600 MG/50 ML BAG IV ONE (11:12)
[2021-12-14] MEDS ORDERED: propofoL 200 MG/20 ML VIAL IV ONE (11:27)
[2021-12-14] MEDS ORDERED: HYDROmorphone 1 MG/1 ML INJ ONE (11:27)
[2021-12-14] MEDS ORDERED: ROCURONIUM 50 MG/5 ML INJ IV ONE (11:28)
[2021-12-14] MEDS ORDERED: LIDOCAINE MPF (2%) 20 MG/1 ML VIAL 5 ML ONE (11:29)
[2021-12-14] MEDS ORDERED: dexAMETHasone 20 MG/5 ML VIAL ONE (11:53)
[2021-12-14] MEDS ORDERED: CLINDAMYCIN 600 MG/50 mL 600 MG/50 ML BAG IV NR (12:00)
[2021-12-14] MEDS ORDERED: SODIUM CHLORIDE 0.9% IRR 1,500 ML BOTTLE IR ONE (12:02)
[2021-12-14] MEDS ORDERED: ONDANSETRON 4 MG/2 ML INJ ONE (12:21)
[2021-12-14] MEDS ORDERED: GLYCOPYRROLATE 0.4 MG/2 ML INJ ONE (12:22)
[2021-12-14] MEDS ORDERED: NEOSTIGMINE 10MG/10 ML INJ MDV ONE (12:22)
[2021-12-14] MEDS ORDERED: SUGAMMADEX SODIUM 200 MG/2 ML VIAL IV ONE (12:40)
[2021-12-14 16:16] VITALS: BP 117/70
== END 2021-12-14 09:41 | disposition home or self-care (01) ==
LOC: OR 09:40
PROVIDERS: ATTEND Obstetrics & Gynecology
DX: Z30.2 Encounter for sterilization (principal); D64.9 Anemia, unspecified; E66.01 Morbid (severe) obesity due to excess calories; J45.909 Unspecified asthma, uncomplicated; F17.210 Nicotine dependence, cigarettes, uncomplicated; Z88.0 Allergy status to penicillin; Z20.822 Contact with and (suspected) exposure to COVID-19; Z79.899 Other long term (current) drug therapy; Z68.38 Body mass index [BMI] 38.0-38.9, adult; Z72.89 Other problems related to lifestyle; Z83.3 Family history of diabetes mellitus; Z80.8 Family history of malignant neoplasm of other organs or systems; Z82.49 Family history of ischemic heart disease and other diseases of the circulatory system
CPT/HCPCS: 36415; 58670; 84703; 85027; J1100; J1170; J1815; J2250; J2405; J2704; J2710; J3490; J7120; J7502; U0003